=== PATIENT | female | born 1960 | race Caucasian/White ===

== ENCOUNTER 2022-01-03 09:23 | Emergency (ER) | payer OTHER ==
[~2022-01-03] VITALS: Ht 170.2 cm; Wt 74.4 kg
[2022-01-03] MEDS ORDERED: METRONIDAZOLE500 MG (10:16)
[2022-01-03] MEDS ORDERED: AMBIEN5 MG PO (10:16)
[2022-01-03] MEDS ORDERED: ANASTROZOLE1 MG PO (10:16)
[2022-01-03] MEDS ORDERED: GLUMETZA500 MG (10:16)
[2022-01-03] MEDS ORDERED: ZESTRIL2.5 MG (10:17)
[2022-01-03] MEDS ORDERED: TORSEMIDE5 MG (10:17)
[2022-01-03] MEDS ORDERED: PRAVASTATIN SOD10 MG PO (10:17)
== END 2022-01-03 13:44 | disposition home or self-care (01) ==
LOC: ER 09:23
DX: R31.0 Gross hematuria (principal); E11.9 Type 2 diabetes mellitus without complications; Z79.84 Long term (current) use of oral hypoglycemic drugs; Z85.9 Personal history of malignant neoplasm, unspecified; E78.00 Pure hypercholesterolemia, unspecified; R30.0 Dysuria; Z88.2 Allergy status to sulfonamides